=== PATIENT | female | born 1955 | race American Indian/Alaskan Native ===

== ENCOUNTER 2017-09-11 07:44 | Day surgery (SDC) | payer BC, OTHER ==
[~2017-09-11 07:44] MED LIST: Lactated Ringers 1,000 ML IV SCH; Sodium Chloride 0.9% 10 ML Syringe FLUSH PRN; Sodium Chloride 0.9% 2.5 ML Syringe FLUSH PRN
--- NOTE | 2017-09-11 08:43 | PCM.PREANE ---
Preanesthetic Assessment - Anesthesia/Transfusion/Family Hx Anesthesia History: Prior Anesthesia Without Reaction Family History of Anesthesia Reaction: No Transfusion History: No Prior Transfusion(s) Intubation History: Unknown - Review of Systems General: No Symptoms Pulmonary: No Symptoms Cardiovascular: No Symptoms Gastrointestinal: Constipation, Diarrhea, Other (family h/o colon cancer) Neurological: No Symptoms Other: Reports: None - Physical Assessment O2 Sat by Pulse Oximetry: 96 Respiratory Rate: 16 Vital Signs: Last Vital Signs Temp 36.5 C 09/11/17 08:17 Pulse 73 09/11/17 08:17 Resp 16 09/11/17 08:17 BP 122/73 09/11/17 08:17 Pulse Ox 96 09/11/17 08:17 Height: 1.68 m Weight: 89.358 kg ASA Class: 3 Mental Status: Alert & Oriented x3 Airway Class: Mallampati = 1 Dentition: Reports: Dentures (upper and lower) Thyro-Mental Finger Breadths: 3 Mouth Opening Finger Breadths: 3 ROM/Head Extension: Full Lungs: Clear to Auscultation, Normal Respiratory Effort Cardiovascular: Regular Rate, Regular Rhythm - Allergies Allergies/Adverse Reactions: Allergies Allergy/AdvReac Type Severity Reaction Status Date / Time glyburide Allergy Headache Verified 09/09/17 10:13 lisinopril Allergy Headache Verified 09/09/17 10:13 losartan Allergy Headache Verified 09/09/17 10:13 metformin Allergy Headache Verified 09/09/17 10:13 - Blood Blood Available: No - Anesthesia Plan Pre-Op Medication Ordered: None - Acknowledgements Anesthesia Type Planned: MAC Pt an Appropriate Candidate for the Planned Anesthesia: Yes Alternatives and Risks of Anesthesia Discussed w Pt/Guardian: Yes Pt/Guardian Understands and Agrees with Anesthesia Plan: Yes PreAnesthesia Questionnaire HEENT History: Reports: Hard of Hearing, Impaired Vision Other HEENT History: wears glasses/contacts, upper denture, charles hearing aids Cardiovascular History: Reports: High Cholesterol, Hypertension Gastrointestinal History: Reports: GERD Genitourinary History: Reports: None [employer]ERK History: Reports: Neurological History: Reports: Neuropathy, Diabetic Endocrine/Metabolic History: Reports: Diabetes, Type II, Obesity/BMI 30+ - Past Surgical History Head Surgeries/Procedures: Reports: None GI Surgical History: Reports: Appendectomy, Colonoscopy (10 years ago) Female Surgical History: Reports: Hysterectomy - SUBSTANCE USE Smoking Status *Q: Never Smoker Recreational Drug Use History: No - HOME MEDS Home Medications: Home Meds Atenolol 50 mg PO DAILY 09/09/17 [History] Gabapentin [Neurontin] 1 tab PO ASDIRECTED PRN 09/09/17 [History] Insulin Aspart [NovoLOG] 11 units PO BID 09/09/17 [History] Omeprazole 20 mg PO ASDIRECTED PRN 09/09/17 [History] amLODIPine [Norvasc] 10 mg PO DAILY 09/09/17 [History] guaiFENesin [Tussin] 7.5 ml PO ASDIRECTED PRN 09/09/17 [History] - CURRENT (IN HOUSE) MEDS Current Meds: Current Medications Lactated Ringer's (Ringers, Lactated) 1,000 mls @ 125 mls/hr IV ASDIRECTED RESHMA Last Admin: 09/11/17 08:19 Dose: 125 mls/hr Sodium Chloride (Saline Flush) 10 ml FLUSH ASDIRECTED PRN PRN Reason: Keep Vein Open Sodium Chloride (Saline Flush) 2.5 ml FLUSH ASDIRECTED PRN PRN Reason: Keep Vein Open
[2017-09-11] MEDS ORDERED: Propofol 200 MG/20 ML SDV ONE ×3 (14:27→15:13)
[2017-09-11] MEDS ORDERED: Lidocaine 2% 5 ML SDV ONE (14:27)
[2017-09-11] MEDS ORDERED: fentaNYL 100 MCG/2 ML SDV ONE (14:28)
[2017-09-11] MEDS ORDERED: Midazolam 1 MG/ML 2 ML SDV ONE (14:28)
[2017-09-11] MEDS ORDERED: ePHEDrine 50 MG/ML SDV ONE (14:56)
--- NOTE | 2017-09-11 15:30 | PCM.OPNOTE ---
- General Post-Op/Procedure Note Date of Surgery/Procedure: 09/11/17 Operative Procedure(s): Colonoscopy Findings: 1 descedning colon polyp and 1 sigmoid colon polyp diverticulosis Pre Op Diagnosis: Family history of colon polyps Post-Op Diagnosis: Diverticulosis, 1 desc colon polyp 1 sigm colon polyp [place] [facility] [place]geon: Manjula Nunez Condition: Good
--- NOTE | 2017-09-11 21:03 | OR ---
SURGEON: MYNOR LAURENT MD DATE OF PROCEDURE: 09/11/2017 PREOPERATIVE DIAGNOSIS: Family history of colon cancer. POSTOPERATIVE DIAGNOSES: 1. Diverticulosis. 2. One descending colon polyp. 3. One sigmoid colon polyp. PROCEDURE PERFORMED: Screening colonoscopy. INSTRUMENT USED: Olympus colonoscope. ANESTHESIA: MAC. EXTENT OF EXAM: To the cecum. PREPARATION: Good. LIMITATIONS: None. INDICATIONS: The patient is a 62-year-old female, who presents for a first time screening colonoscopy. She has not had any change in her bowel habits. She has a family history of colon cancer. We discussed the procedure, expected perioperative course, and risks including bleeding, infection, or damage to surrounding structures, including perforation. The patient verbalized understanding and wishes to proceed. PROCEDURE IN DETAIL: The patient was brought to the endoscopy suite and placed in a left lateral decubitus position. A time-out was completed verifying the patient's name, age, date of , allergies, and procedure to be performed. Monitored anesthesia care was induced and continuous oxygen was provided via face mask throughout the procedure. After adequate sedation was achieved, a digital rectal exam was performed. This exam was within normal limits. A well-lubricated colonoscope was inserted into the rectum and advanced under direct visualization to the level of cecum. The cecum was identified by both visual and anatomic landmarks. A photograph was taken of the cecal cap as well as with the scope retroflexed within the cecum. The scope was then straightened out and fully withdrawn while examining the color, texture, anatomy, and integrity of the mucosa from the cecum to the anal canal. The patient had diffuse diverticulosis throughout the colon. She had one 2 to 3 mm polyp within the descending colon that was removed using a cold biopsy forceps. The patient had a pedunculated polyp in the sigmoid colon at 30 cm that was located around the corner making it very difficult to excise. I attempted to use a snare forceps, but was unable to get around the base of the polyp. The polyp was removed in piecemeal fashion using a cold biopsy forceps. The majority of the polyp was removed. A small amount of tissue was left at the base. The remainder of the exam was normal. The scope was retroflexed within the rectum to allow visualization of the anal canal opening. This appeared normal and a photograph was taken. The scope was then straightened out and removed from the patient. The cecum to anus time was 36 minutes due to the difficulty in removing the sigmoid colon polyp. The patient was transferred to the recovery room in stable condition. ENDOSCOPIC DIAGNOSES: 1. Diverticulosis. 2. One sigmoid colon polyp. 3. One descending colon polyp. RECOMMENDATIONS: Follow up in clinic in 2 weeks. EDIS OCHOA /[id number]
== END 2017-09-11 16:20 | disposition home or self-care (01) ==
LOC: MW.SDS 07:44
PROVIDERS: ATTEND Surgery
DX: D12.4 Benign neoplasm of descending colon (principal); D12.5 Benign neoplasm of sigmoid colon; K57.30 Diverticulosis of large intestine without perforation or abscess without bleeding; E11.9 Type 2 diabetes mellitus without complications; K21.9 Gastro-esophageal reflux disease without esophagitis; E78.5 Hyperlipidemia, unspecified; I10 Essential (primary) hypertension; E66.9 Obesity, unspecified; Z80.0 Family history of malignant neoplasm of digestive organs; Z88.8 Allergy status to other drugs, medicaments and biological substances; Z79.4 Long term (current) use of insulin; Z79.899 Other long term (current) drug therapy; Z90.49 Acquired absence of other specified parts of digestive tract; Z90.710 Acquired absence of both cervix and uterus; Z98.890 Other specified postprocedural states; Z68.32 Body mass index [BMI] 32.0-32.9, adult
CPT/HCPCS: 45380; 45385; 82962; 88305; J2250; J3010; J7120; 00810; J2704